=== PATIENT | female | born 1960 | race Caucasian/White ===

== ENCOUNTER 2021-07-20 14:54 | Outpatient (CLI) | payer BC | END 2021-07-20 14:55 | disposition home or self-care (01) | LOC: SCSRAD 14:54 | PROVIDERS: ATTEND Internal Medicine Rheumatology | DX: M05.70 Rheumatoid arthritis with rheumatoid factor of unspecified site without organ or systems involvement (principal); M24.642 Ankylosis, left hand; M19.042 Primary osteoarthritis, left hand; M19.041 Primary osteoarthritis, right hand; M19.071 Primary osteoarthritis, right ankle and foot; M19.072 Primary osteoarthritis, left ankle and foot; Z98.890 Other specified postprocedural states ==